=== PATIENT | male | born 1995 | race Caucasian/White ===

== ENCOUNTER 2017-01-02 10:26 | Emergency (ER) | payer BC ==
[~2017-01-02] VITALS: Ht 177.8 cm; Wt 129.3 kg
[2017-01-02 10:32] VITALS: BP_SYST 162
[2017-01-02] MEDS ORDERED: NACL 0.9% 1,000 ML IV ONE ×2 (12:15→15:45)
[2017-01-02 12:45] LABS: EOSINOPHILS % (AUTO) 0.3 % (0.0-4.0); HEMATOCRIT 43.5 % (36-54); HEMOGLOBIN 14.5 g/dL (14.0-18.0); LYMPHOCYTES # (AUTO) 1.6 K/uL (1.0-5.5); LYMPHOCYTES % (AUTO) 21.7 % (20.5-51.5); MEAN CORPUSCULAR HEMOGLOBIN 28 pg (27-31); MEAN CORPUSCULAR HGB CONC 33 % (32-36); MEAN CORPUSCULAR VOLUME 85 fL (79.0-98.0); MONOCYTES % (AUTO) 13.9 % (1.7-9.3); PLATELET COUNT (AUTO) 214 K/uL (130-430); RED BLOOD CELL COUNT(AUTO) 5.15 MIL/uL (4.2-6.2); RED CELL DISTRIBUTION WIDTH 13.1 % (9.0-15.0); WHITE BLOOD COUNT (AUTO) 7.4 K/uL (4.8-10.8)
[2017-01-02 12:52] LABS: BASOPHILS % (AUTO) 0.1 % (0.0-2.0); NEUTROPHILS # (AUTO) 4.8 K/uL (1.8-7.7)
[2017-01-02 12:57] LABS: CALCIUM 8.1 mg/dL (8.4-11.0); CREATININE 0.94 mg/dL (0.55-1.30); POTASSIUM 4.1 mmol/L (3.5-5.1)
[2017-01-02 13:01] LABS: ALBUMIN 3.5 g/dL (3.4-4.8); TOTAL BILIRUBIN 0.4 mg/dL (0.0-1.0); TOTAL PROTEIN, SERUM 7.8 g/dL (6.4-8.3)
[2017-01-02] MEDS ORDERED: IBUPROFEN 800 MG TABLET PO ONE (13:45)
[2017-01-02 15:20] VITALS: BP_SYST 117
== END 2017-01-02 15:20 | disposition home or self-care (01) ==
LOC: SED 10:26
DX: B34.9 Viral infection, unspecified (principal); K21.9 Gastro-esophageal reflux disease without esophagitis; Z88.1 Allergy status to other antibiotic agents; Z88.8 Allergy status to other drugs, medicaments and biological substances
CPT/HCPCS: 36415; 70450; 71010; 80053; 85025; 96360; 96361; 99285; J7030

== ENCOUNTER 2017-12-17 11:02 | Emergency (ER) | payer BC ==
[~2017-12-17] VITALS: Ht 180.3 cm; Wt 122.5 kg
--- NOTE | 2017-12-17 11:02 | NUR ---
Brought straight back placed in room 4 on SpO2 99% on monitor with high alarms
--- NOTE | 2017-12-17 11:05 | NUR ---
ER at bedside examining patient.
--- NOTE | 2017-12-17 11:07 | NUR ---
Pt AAOx4 ambulated into ED accompanied by mother c/o SOB and 6/10 chest wall pain upon inspiration x 30 min prior to arrival. Acessory muscle use; speaking in full sentences during interview. Sao2 100% on RA. Pt was seen by PMD yesterday; prescribed Z-pack. Pt took albuterol inhaler, advil, cough syrup, with no relief. Hx of asthma and seizures. Skin pink dry and warm. No other injuries/complaints per pt/noted. Will continue to monitor.
[2017-12-17 11:11] VITALS: BP_SYST 115
[2017-12-17] MEDS ORDERED: ALBUTEROL SULFATE 0.083% 2.5 MG/3 ML VIAL.NEB INH ONE ×2 (11:12→11:15)
[2017-12-17] MEDS ORDERED: IPRATROPIUM BROM 0.5 MG/2.5 ML VIAL.NEB (ATROVENT) INH ONE ×2 (11:13→11:15)
[2017-12-17] MEDS ORDERED: LORazepam 1 MG TABLET PO ONE (11:15)
[2017-12-17] MEDS ORDERED: PREDNISONE 20 MG TABLET PO ONE (11:15)
--- NOTE | 2017-12-17 11:25 | NUR ---
Prednisone and Ativan administered. Pt tolerated well. No adverse reactions noted.
--- NOTE | 2017-12-17 11:45 | NUR ---
Pt reports relief of difficulty breathing. Pt states "The ativan was a good idea."
[2017-12-17] MEDS ORDERED: LEVOFLOXACIN 500 MG TABLET PO ONE (12:30)
--- NOTE | 2017-12-17 12:43 | NUR ---
Patient given written and verbal discharge instructions and verbalizes understanding. ER MD [place] discussed with patient the results and treatment provided. Patient in stable condition. ID arm band removed. No Rx given. Patient educated on pain management and to follow up with PMD. Pain Scale 0. Opportunity for questions provided and answered. Medication side effect fact sheet provided.
[2017-12-17 12:45] VITALS: BP_SYST 115
== END 2017-12-17 12:43 | disposition home or self-care (01) ==
LOC: SED 11:02
DX: J18.9 Pneumonia, unspecified organism (principal); K21.9 Gastro-esophageal reflux disease without esophagitis; J45.909 Unspecified asthma, uncomplicated; Z88.1 Allergy status to other antibiotic agents; Z88.8 Allergy status to other drugs, medicaments and biological substances
CPT/HCPCS: 71045; 94640; 99284; J7512; J7613

== ENCOUNTER 2018-10-24 10:20 | Emergency (ER) | payer BC ==
[~2018-10-24] VITALS: Ht 180.3 cm; Wt 122.5 kg
[2018-10-24 10:20] VITALS: BP_SYST 152
--- NOTE | 2018-10-24 10:21 | NUR ---
BROUGHT BACK TO HALLWAY BED AND TRIAGED. REPORT GIVEN TO CASIE
--- NOTE | 2018-10-24 10:25 | NUR ---
Patient AOx4 and obeys commands. Patient c/o of skin rash after placing a face mask and is worried that he may have contracted measles. Notable redness on the cheeks. No signs of distress @ this time. No complaints of pain. NKA. Patient has no past medical history.
--- NOTE | 2018-10-24 10:30 | NUR ---
Dr. Pedraza @ bedside for examination.
--- NOTE | 2018-10-24 10:58 | NUR ---
Patient given written and verbal discharge instructions and verbalizes understanding. ER MD discussed with patient the results and treatment provided. Patient in stable condition. ID arm band removed. Rx of atarax and hydrocortisone given. Patient educated on pain management and to follow up with PMD. Pain Scale 0/10. Opportunity for questions provided and answered. Medication side effect fact sheet provided.
== END 2018-10-24 10:58 | disposition home or self-care (01) ==
LOC: SED 10:20
DX: L25.9 Unspecified contact dermatitis, unspecified cause (principal); K21.9 Gastro-esophageal reflux disease without esophagitis; J45.909 Unspecified asthma, uncomplicated; Z88.1 Allergy status to other antibiotic agents; Z88.8 Allergy status to other drugs, medicaments and biological substances
CPT/HCPCS: 99283